=== PATIENT | female | born 1985 | race Two or more races ===

== ENCOUNTER 2017-05-20 17:55 | Observation (INO) | payer MEDICAID ==
[~2017-05-20 17:55] MED LIST: PRENTAB28 PO
== END 2017-05-20 19:29 | disposition home or self-care (01) | DRG 566 ==
LOC: LDRP 17:55
PROVIDERS: ADMIT Specialist; ATTEND Specialist
DX: O34.219 Maternal care for unspecified type scar from previous cesarean delivery (principal); Z3A.22 22 weeks gestation of pregnancy
CPT/HCPCS: 59025; 81002; 94760; G0378

== ENCOUNTER 2017-09-17 18:41 | Emergency (ER) | payer MEDICAID ==
[~2017-09-17] VITALS: Ht 172.7 cm; Wt 106.4 kg
[2017-09-17 20:03] VITALS: BP 125/77
== END 2017-09-17 21:07 | disposition home or self-care (01) ==
LOC: ER 18:41
DX: T81.89XD Other complications of procedures, not elsewhere classified, subsequent encounter (principal); Z88.6 Allergy status to analgesic agent